=== PATIENT | male | born 1995 | race African-American/Black ===

== ENCOUNTER 2019-05-18 12:19 | Emergency (ER) | payer SELFPAY ==
[~2019-05-18] VITALS: Ht 177.8 cm; Wt 86.2 kg
[2019-05-18 16:50] VITALS: BP 112/62
== END 2019-05-18 16:51 | disposition home or self-care (01) ==
LOC: ER 12:19
DX: J06.9 Acute upper respiratory infection, unspecified (principal); B97.89 Other viral agents as the cause of diseases classified elsewhere; F12.10 Cannabis abuse, uncomplicated
CPT/HCPCS: 71046